=== PATIENT | female | born 1980 | race Two or more races ===

== ENCOUNTER → 2017-05-12 | Outpatient (CLI) | payer OTHER ==
[~2017-05-12] MED LIST: CLIN300 PO; HYDR1TAB94 PO; IBUP800 PO; LEVO750 PO; Ortho Tri-Cycl1 EACH PO; Percocet 5-3251 EACH PO
[2017-05-19 15:57] LABS: HPV Genotype 16 Not Detected (NOTDET); HPV Genotype 18 Not Detected (NOTDET)
[2017-05-27 14:11] LABS: HPV High Risk Other Not Detected (NOTDET)
== END ==
LOC: LAB 12:01
PROVIDERS: Registered Nurse Community Health
DX: Z12.4 Encounter for screening for malignant neoplasm of cervix (principal)
CPT/HCPCS: 87624; G0123

== ENCOUNTER 2017-12-02 19:10 | Inpatient (IN) | payer OTHER ==
[~2017-12-02] VITALS: Ht 152.4 cm; Wt 55.6 kg
[~2017-12-02 19:10] MED LIST changes: -HYDR1TAB94 PO; -LEVO750 PO
[2017-12-05] MEDS ORDERED: HYDR1TAB94 PO (18:11)
[2017-12-05] MEDS ORDERED: LEVO750 PO (18:11)
== END 2017-12-05 20:25 | disposition home or self-care (01) | DRG 601 ==
LOC: SURS 19:10
PROVIDERS: Surgery
PROC: 0H9T00Z Drainage of Right Breast with Drainage Device, Open Approach (ICD-10-PCS; principal; 2017-12-05 16:00)
DX: N61.1 Abscess of the breast and nipple (principal)
CPT/HCPCS: J1100; J1956; J2250; J2405; J2765; J3010; J7120

== ENCOUNTER 2018-11-09 12:39 | Emergency (ER) | payer OTHER ==
[~2018-11-09] VITALS: Ht 152.4 cm; Wt 57.6 kg
[~2018-11-09 12:39] MED LIST changes: +HYDR1TAB94 PO; +LEVO750 PO
[2018-11-09 13:20] LABS: BASOPHILS ABSOLUTE AUTO 0.03 K/mm3 (0.00-0.23); BASOPHILS PERCENT AUTO 1 % (0-2); EOSINOPHILS PERCENT AUTO 2 % (0-6); Hematocrit 42.5 % (33.0-51.0); IMMATURE GRAN ABSOLUTE AUTO 0.01 K/mm3 (0.00-0.10); IMMATURE GRAN PERCENT AUTO 0 % (0-1); LYMPHOCYTES ABSOLUTE AUTO 2.25 K/mm3 (0.84-5.20); LYMPHOCYTES PERCENT AUTO 51 % (21-46); MONOCYTES ABSOLUTE AUTO 0.38 K/mm3 (0.16-1.47); MONOCYTES PERCENT AUTO 9 % (4-13); Mean Corpuscular HGB 28.5 pg (26.0-34.0); Mean Corpuscular HGB Conc 32.9 g/dL (31.5-36.5); Mean Corpuscular Volume 87 fL (80-100); Mean Platelet Volume 9.5 fL (9.1-12.4); NEUTROPHILS ABSOLUTE AUTO 1.62 K/mm3 (1.96-9.15); NEUTROPHILS PERCENT AUTO 37 % (41-73); Platelet Count 345 K/mm3 (150-400); Red Blood Cell Count 4.91 M/mm3 (3.80-5.20); White Blood Cell Count 4.39 K/mm3 (4.00-11.30)
[2018-11-09 13:38] LABS: Alanine Aminotransfer (ALT/SGP 20 U/L (12-78); Albumin, Blood 3.7 g/dL (3.4-5.0); Albumin/Globulin Ratio 0.8 (0.8-1.8); Alk Phos 55 U/L (50-136); Anion Gap 7 mmol/L (6-16); Aspartate Aminotrans (AST/SGOT 15 U/L (12-37); Bilirubin, Total 0.2 mg/dL (0.1-1.0); Blood Urea Nitrogen 10 mg/dL (8-24); Bun/Creatinine Ratio 17.5 (12.0-20.0); CO2, Blood 25 mmol/L (21-32); Calcium, Blood 8.8 mg/dL (8.5-10.1); Chloride, Blood 107 mmol/L (98-108); Creatinine, Blood 0.57 mg/dL (0.40-1.00); Globulin, Blood 4.5 g/dL (2.2-4.0); Glomerular Filtration Rate >60 (60-); Glucose, Blood 76 mg/dL (70-99); Sodium, Blood 139 mmol/L (136-145); Total Protein, Blood 8.2 g/dL (6.4-8.2)
[2018-11-09 15:08] LABS: Source, Urine Clean Catch
[2018-11-09 15:37] LABS: Bilirubin, Urine Neg (Neg); Blood, Urine 2+ (Neg); Glucose Qualitative, Urine Neg (Neg); Ketones, Urine Neg (Neg); Leukocyte Esterase, Urine 1+ (Neg); Nitrite, Urine Neg (Neg); Protein, Urine Neg (Neg); Specific Gravity, Urine 1.015 (1.003-1.022); Urobilinogen, Urine NORM (Normal); pH, Urine 6.5 (5.0-8.0)
[2018-11-09 16:08] LABS: Appearance, Urine Clear (Clear); Color, Urine Yellow (P-Yellow)
[2018-11-09 16:10] LABS: Bacteria Few /hpf; Squamous Epithelial Cells Many /hpf (Few); White Blood Cells, Urine 0-2 /hpf (0-5)
[2018-11-09] MEDS ORDERED: Bactrim Ds Tab1 EACH PO (17:10)
== END 2018-11-09 17:15 | disposition home or self-care (01) ==
LOC: ER 12:39
PROVIDERS: Physician Assistant
DX: N61.1 Abscess of the breast and nipple (principal); Z88.1 Allergy status to other antibiotic agents
CPT/HCPCS: 36415; 76604; 80053; 81001; 85025; 87086; 99284-25

== ENCOUNTER → 2021-04-01 | Outpatient (CLI) | payer OTHER ==
[~2021-04-01] MED LIST changes: +Bactrim Ds Tab1 EACH PO
== END | disposition home or self-care (01) ==
LOC: LAB SHORT 13:20
DX: N30.01 Acute cystitis with hematuria (principal)
CPT/HCPCS: 87077; 87086; 87186